=== PATIENT | male | born 1950 | race Caucasian/White ===

== ENCOUNTER 2018-12-09 08:41 | Day surgery (SDC) | payer MEDICARE, OTHER ==
[~2018-12-09] VITALS: Ht 177.8 cm; Wt 74.8 kg
[~2018-12-09 08:41] MED LIST: ASPI-817 PO; FLOMAX PO; SIMVASTATIN PO
[2018-12-09 09:51] VITALS: Ht 177.8 cm; Wt 74.8 kg
[2018-12-09 10:13] VITALS: BP 155/70; PULSE 53; RESP 23
--- NOTE | 2018-12-09 10:14 | PREAC ---
Date/Time of Note Date/Time of Note DATE: 12/09/18 TIME: 10:13 Anesthesia Eval and Record Evaluation Time Pre-Procedure Interview DATE: 12/09/18 TIME: 10:13 Age 68 Sex male NPO: 8 hrs Preoperative diagnosis Iron Def. Anermia, Reflux Planned procedure EGD,& Colonoscopy Past Medical History Past Medical History: Includes Cardio: Dyslipidemia Renal: BPH Surgery & Anesthesia Issues No known issue Meds Anticoagulation: No Beta Nasir within 24 hr: No Reason Beta Nasir not given: Pt. not on B-Nasir Reported Medications [Flomax] No Conflict Check, PO 12/09/18 [Simvastatin] No Conflict Check, PO 12/09/18 Aspirin* (Aspirin* EC) 81 Mg Tablet.dr, 81 MG PO DAILY, TAB 12/09/18 Meds reviewed: Yes Allergies Coded Allergies: latex (Verified Allergy, Unknown, 12/09/18) Allergies Reviewed: Yes Labs/Studies Labs Reviewed: Reviewed by anesthesiologist test: N/A Studies: ECG (n/a), CXR (n/a) Pre-procedure Exam Airway: Adequate mouth opening, Adequate thyromental dist Mallampati: Mallampati II Teeth: Normal Lung: Normal Heart: Normal ASA Physical Status ASA physical status: 2 Emergency: None Planned Anesthetic General/MAC: MAC Planned Pain Management Parenteral pain med Pre-operative Attestations Prior to commencing anesthesia and surgery, the patient was re-evaluated, there was verification of: *The patient's identity *The results of appropriate recent lab work and preoperative vital signs *The above evaluation not changing prior to induction *Anesthetic plan, risk benefits, alternative and complications discussed with patient/family; questions answered; patient/family understands, accepts and wishes to proceed. JOSSELYN CASTRO MD Dec 09, 2018 10:14
[2018-12-09] MEDS ORDERED: PROPOFOL 60 ML ONE (10:42)
--- NOTE | 2018-12-09 10:43 | PAC ---
Date/Time of Note Date/Time of Note DATE: 12/09/18 TIME: 10:43 Post-Anesthesia Notes Post-Anesthesia Note Last documented vital signs T: 98.0 Activity: WNL Respiratory function: WNL Cardiovascular function: WNL Mental status: Baseline Pain reasonably controlled: Yes Hydration appropriate: Yes Nausea/Vomiting absent: Yes JOSSELYN CASTRO MD Dec 09, 2018 10:43
[2018-12-09 10:47] VITALS: BP 100/54; PULSE 54; RESP 18
[2018-12-09 11:07] VITALS: BP 144/85; PULSE 54; RESP 20
[2018-12-09] MEDS ORDERED: ACETAMINOPHEN 500 MG TAB PO STA (11:31)
[2018-12-09] MEDS ORDERED: ACETAMINOPHEN 500 MG TAB ONE (11:35)
--- NOTE | 2018-12-09 18:53 | CONS ---
DATE OF ADMISSION: 12/09/2018 DATE OF CONSULTATION: PATIENT NAME: CHUCK YING TYPE OF CONSULTATION: Preoperative gastroenterology. Dear Dr. Ugarte: I thank you very much for this kind referral. HISTORY OF PRESENT ILLNESS: Mr. Chuck Ying is a 68-year-old male patient who has been referred to me for further evaluation of microcytic hypochromic anemia. The patient denies any history of rectal b leeding. There is no past history of inflammatory bowel disease or colon neoplasm. Appetite is good . No weight loss. The patient is status post surgery for hiatal hernia. He has been taking diclofe nac for various pains. He is also on baby aspirin a day. No history of gallstones or liver disease. Not a hypertensive or diabetic. No heart disease, lung problem or kidney disease. Has hyperlipide eduardo. The patient also has got enlarged prostate. He is status post bilateral hip replacement surger y. SOCIAL HISTORY: Nonsmoker. No alcohol abuse. FAMILY HISTORY: No family history of gastrointestinal tract neoplasm. ALLERGIES: ALLERGIC TO LATEX. MEDICATIONS: 1. Omeprazole 40 mg p.o. daily. 2. Simvastatin 20 mg p.o. daily. 3. Flomax 0.4 mg p.o. daily. 4. Aspirin 81 mg p.o. daily. VITAL SIGNS: Diclofenac p.r.n. for pain. He is 5 feet 9 inches tall and weighs 160 pounds, BMI 24, blood pressure 128/82. HEART: Normal heart sounds. LUNGS: Clear. ABDOMEN: Soft, no masses. Normal bowel sounds. NEUROLOGIC: Normal neurological exam. IMPRESSION: 1. Iron deficiency anemia. 2. Status post surgery for hiatal hernia. 3. The patient has been taking aspirin and diclofenac. 4. Hyperlipidemia. 5. Enlarged prostate. 6. Status post bilateral hip replacement surgery. 7. ALLERGY TO LATEX. PLAN: Colonoscopy and upper endoscopy for further evaluation. The procedures and possible complications are well explained to the patient. He understands and cons ents to the procedures. I thank you once again. With warmest personal regards, Dictated By: MICHAEL OLMSTEAD/JERSON Conf#: [id number] DID#: [id number]
== END 2018-12-09 12:44 | disposition home or self-care (01) ==
LOC: GIL 08:41
PROVIDERS: ATTEND Internal Medicine Gastroenterology
DX: D50.9 Iron deficiency anemia, unspecified (principal); K64.8 Other hemorrhoids; K21.0 Gastro-esophageal reflux disease with esophagitis; K29.60 Other gastritis without bleeding; E78.5 Hyperlipidemia, unspecified; Z79.82 Long term (current) use of aspirin
CPT/HCPCS: 88305